=== PATIENT | female | born 1960 | race Caucasian/White ===

== ENCOUNTER 2016-07-18 10:18 | Emergency (ER) | payer BC ==
[2016-07-18 11:05] LABS: BASOPHILS 0.3 % (0.0-2.0); EOSINOPHILS 1.8 % (0-7); HEMATOCRIT 41.8 % (36.0-48.0); HEMOGLOBIN 13.8 g/dL (12-16); IMMATURE GRANULOCYTES 0.2 % (0-5); LYMPHOCYTES 33.3 % (15-50); MCH 30.6 pg (26.0-34.0); MCV 92.7 fL (80.0-100.0); MEAN PLATELET VOLUME 10.9 fL (7.4-10.4); MONOCYTES 11.2 % (2-11); NEUTROPHILS 53.2 % (40-80); PLATELET COUNT 194 10x3/uL (130-400); RBC 4.51 10x6/uL (4.00-5.40); RDW 13.4 % (11.5-14.5); WBC 6.1 10x3/uL (4.8-10.8)
[2016-07-18 11:14] LABS: ALKALINE PHOSPHATASE 67 U/L (46-116); ALT (SGPT) 32 U/L (10-68); CALC OSMOLALITY 268 mosm/kg (275-300); CALCIUM 9.4 mg/dL (8.5-10.1); CARBON DIOXIDE 26.5 mmol/L (21.0-32.0); CHLORIDE - SERUM 100 mmol/L (98-107); CREATININE - SERUM 0.9 mg/dL (0.6-1.3); GLUCOSE 102 mg/dL (74-106); POTASSIUM - SERUM 3.7 mmol/L (3.5-5.1); PROTEIN - SERUM 7.3 g/dL (6.4-8.2); SODIUM 134 mmol/L (136-145); UREA NITROGEN 16 mg/dL (7-18); eGFR NON AFRICAN AMERICAN 69 mL/min (90-120)
[2016-07-18 11:23] LABS: APPEARANCE CLEAR (CLEAR); BILIRUBIN NEGATIVE (NEGATIVE); COLOR STRAW (YELLOW); GLUCOSE NEGATIVE (NEGATIVE); KETONE NEGATIVE (NEGATIVE); LEUKOCYTE ESTERASE NEGATIVE (NEGATIVE); NITRITE NEGATIVE (NEGATIVE); PROTEIN NEGATIVE (NEGATIVE); UROBILINOGEN NORMAL (NORMAL)
[2016-07-18 11:25] LABS: CKMB 1.3 U/L (0.0-3.6); CREATINE KINASE 64 UL (21-215); TROPONIN-I 0.016 ng/mL (0.000-0.060)
[2016-07-18 11:39] LABS: T4 THYROXIN - FREE 1.03 ng/dL (0.76-1.46); T4 THYROXINE 7.6 ug/dL (4.7-13.3); THYROID STIMULATING HORMONE 1.63 uIU/mL (0.36-3.74)
== END 2016-07-18 13:53 | disposition home or self-care (01) ==
LOC: D.ER 10:18
PROVIDERS: Emergency Medicine; Physician Assistant Medical
DX: R07.89 Other chest pain (principal)

== ENCOUNTER 2020-08-10 05:58 | Inpatient (IN) | payer BC ==
[2020-08-10] VITALS (8 sets, daily range): BP systolic 121–172; BP diastolic 69–87; BMI 27.1; BMI 27.9
[~2020-08-10] VITALS: Ht 167.6 cm; Wt 78.5 kg
[~2020-08-10 05:58] MED LIST: MULTI-DAY VITAM1 TAB PO; PAXIL10 MG PO; PROBIOTIC1 EAC1 PO; VITAMIN D-32000 UNI2 PO
[2020-08-10 06:48] LABS: CALC OSMOLALITY 281 mosm/kg (275-300); CALCIUM 9.1 mg/dL (8.5-10.1); CHLORIDE - SERUM 106 mmol/L (98-107); CREATININE - SERUM 0.8 mg/dL (0.6-1.3); GLUCOSE 106 mg/dL (74-106); POTASSIUM - SERUM 3.9 mmol/L (3.5-5.1); SODIUM 141 mmol/L (136-145); UREA NITROGEN 15 mg/dL (7-18); eGFR NON AFRICAN AMERICAN 78 mL/min (90-120)
[2020-08-10 06:52] LABS: BASOPHILS 0.2 % (0-2); EOSINOPHILS 2.5 % (0-7); HEMATOCRIT 43.4 % (36.0-48.0); HEMOGLOBIN 13.9 g/dL (12-16); IMMATURE GRANULOCYTES 0.2 % (0-5); LYMPHOCYTE ABS# 1.48 10x3/uL (1.18-3.74); LYMPHOCYTES 28.4 % (15-50); MCH 30.7 pg (26.0-34.0); MCV 95.8 fL (80.0-100.0); MEAN PLATELET VOLUME 10.1 fL (7.4-10.4); MONOCYTES 9.6 % (2-11); NEUTROPHIL ABS# 3.09 10x3/uL (1.56-6.13); NEUTROPHILS 59.1 % (40-80); RBC 4.53 10x6/uL (4.00-5.40); RDW 13.5 % (11.5-14.5); WBC 5.2 10x3/uL (4.8-10.8)
[2020-08-10 06:56] LABS: PLATELET COUNT 268 10x3/uL (130-400)
[2020-08-10 06:59] LABS: SARS-CoV-2 ANTIGEN NEGATIVE- SARS-COV-2 (NEGATIVE)
[2020-08-10 07:03] LABS: APTT 26.6 SECONDS (22.8-39.4); INR 0.98 (0.85-1.17)
[2020-08-10 07:55] LABS: BACTERIA NONE SEEN HPF (NONE SEEN); BILIRUBIN NEGATIVE (NEGATIVE); KETONE NEGATIVE (NEGATIVE); NITRITE NEGATIVE (NEGATIVE); SQUAMOUS EPITHELIAL RARE HPF (0-4); UROBILINOGEN NORMAL mg/dL (< 2); WHITE CELLS - URINE RARE HPF (0-4)
--- NOTE | 2020-08-10 10:05 | NUR ---
CAUTERY PAD PLACED ON RIGHT THIGH. PLASMA BLADE USED ON SETTING 6/8. AQUAMANIS USED ON SETTING 170. CAUTERY PAD LOT#[id number] EXP. 12/17/2021
--- NOTE | 2020-08-10 12:28 | NUR ---
PT VERY SLEEPY BUT OORIENTED TO SELF AND PLACE AFTER ARRIVAL FROM PACU. LEFT GROIN DRESSING NOTED CLEAN DRY AND INTACT WITH ICE BAG NOTED. SCDS ON BILAT LEGS. FALL ALARM ON AND ACTIVATED. OXYGEN AT 2L PER NC. CALL LIGHT IN REACH
--- NOTE | 2020-08-10 12:51 | OP ---
PATIENT NAME: LEONELA VILLARREAL MEDICAL RECORD: [id number] :62 LOCATION:D.M3 D.1207 ADMISSION DATE:08/10/20 SURGEON: DUNG UGARTE DO DATE OF OPERATION: 08/10/2020 PROCEDURE PERFORMED: Left total hip arthroplasty. PREOPERATIVE DIAGNOSIS: Left hip osteoarthritis. POSTOPERATIVE DIAGNOSIS: Left hip osteoarthritis. INDICATIONS: Ms. Villarreal is a 59-year-old female who has had left hip pain for quite some time. She got to a point where it is affecting her activities of daily living. She wanted something done surgically. MRIs were done showing cartilage loss on the superior aspect of the femoral head as well as took cam impingement. I believe we did try intra-articular injection and it did not help much at all. She is tired dealing with the pain and wanted something done surgically, wanted a hip replacement. I talked extensively about this and she is aware of the risks including infection, bleeding, damage to nerves and vessels, need for further surgery, continued pain, loss of motion of the hip, fracture, failure of implants, blood clots and even and she signed the consent. SURGEON: Dung Ugarte DO DESCRIPTION OF PROCEDURE: The patient was taken to the operative suite, laid in supine position, given 2 grams of Ancef, 80 mg of gentamicin, and a gram of TXA. She was sedated and intubated. She was then moved over the Pl[place] table and positioned. The left hip was prepped and draped in sterile fashion. A timeout was performed. Everyone was in agreement with the correct side, site, patient, and procedure. I then began by making an incision over the tensor fascia sergio muscle, made careful dissection down to the muscle belly itself, took the fascia anteriorly, muscle belly posteriorly with an Adson-Esau. I then opened up the rectus interval, took the rectus medially and the tensor fascia sergio laterally, dissected out the ascending branch of lateral femoral circumflex, tied it off and coagulated and cut it. I then exposed the capsule opened up the capsule and tagged it, put Hohmann's around the neck, got an x-ray to ensure us cutting in the right place. I then cut the neck, removed the head. When I removed the head, I saw that the femoral head was essentially denuded of any cartilage whatsoever on the superior aspect of the weightbearing portion of it. I then removed the labrum and pulvinar and coagulated any bleeding with Aquamantys. I then reamed first medializing with a 42 and then reamed up to a 50. 50 cup was then impacted in and the liner was put in under fluro. I then exposed the femur. I then used a cookie cutter and canal finder to get into the femoral canal. I then broached from a 7 to an 8 and 8 fit very tightly and then reduced with a -6 head-neck combination. A -6 neck, which was equal length to the right on x-ray an AP pelvis. The lesser trochanter are even indicating equal lengths. We then dislocated the hip, removed the trials in the femur, irrigated thoroughly and then placed in an 8 stem and impacted on an 8 dual mobility head with -6 neck. I then reduced it. X-rays were taken. Again, no fractures were seen in the femur. The stem fit very well. There were also equal lengths on the AP pelvis to the right side. We then irrigated with 10% povidone iodine with 500 mL of normal saline solution and let it sit for couple of minutes and then irrigated out with over 1000 cc of normal saline. We then put an risks of vancomycin and tobramycin powder. Layton Alston, certified OPERATIVE REPORT [id number] LEONELA VILLARREAL surgical back office medical assistant then closed the tensor fascia sergio fascia with a #1 Vicryl in a ushfbl-zi-othmo running locking stitch and then the skin with 2-0 Vicryl in an inverted interrupted fashion, 4-0 Monocryl ran on the skin and Prineo glue placed on the skin. She was dressed with Telfa and Tegaderm. Awakened and taken to recovery in stable condition. BLOOD LOSS: Approximately 250 mL. COMPLICATIONS: None. TRANSINT:[id number] Voice Confirmation ID: [id number] DOCUMENT ID: [id number] DUNG UGARTE DO at 1255 CC: [id number] DICTATION DATE: 08/10/20 0957 SHIP CARPENTER: 08/10/20 1239 ADM IN [facility] [address] [place] [address]
--- NOTE | 2020-08-10 17:59 | NUR ---
PT HAD EMESIS OF APPROX 100CC. ZOFRAN GIVEN. CALL LIGHT IN REACH. FALL ALARM ON.
--- NOTE | 2020-08-10 18:59 | NUR ---
PATIENT RESTING IN BED WITH NO S/S OF DISTRESS. GUEST AT BEDSIDE. PATIENT DENIES NEEDS AT THIS TIME. BED IN LOWEST POSITION AND CALL LIGHT WITHIN REACH. ENCOURAGED PATIENT TO CALL WITH NEEDS.
--- NOTE | 2020-08-10 21:06 | NUR ---
ADMINISTERED MEDS PER ORDERS. PATIENT GEORGES. WELL ENCOURAGED TO CALL WITH NEEDS.
[2020-08-11 04:00] VITALS: BP 136/75
[2020-08-11 05:19] VITALS: BP 136/75
--- NOTE | 2020-08-11 07:27 | NUR ---
PT RESTING QUIETLY IN BED, DENIES PAIN AT THIS TIME, BUT DOES VOICE WISHES TO HAVE PAIN MEDICATION ADMINISTERED PRIOR TO PT. IV TO RIGHT FOREARM WITH 1/2 NS @ 50ML/HR INFUSING VIA PUMP. SITE WITHOUT REDNESS OR EDEMA. DRESSING C/D/I TO LEFT HIP. DENIES FURTHER NEEDS AT THIS TIME. CL WITHIN REACH. ENCOURAGED TO CALL WITH NEEDS. CONTINUE POC
[2020-08-11 08:52] LABS: BASOPHILS 0.1 % (0-2); EOSINOPHILS 0.2 % (0-7); HEMATOCRIT 37.2 % (36.0-48.0); HEMOGLOBIN 11.8 g/dL (12-16); IMMATURE GRANULOCYTES 0.2 % (0-5); LYMPHOCYTE ABS# 1.49 10x3/uL (1.18-3.74); LYMPHOCYTES 15.6 % (15-50); MCH 30.4 pg (26.0-34.0); MCHC 31.7 g/dL (31.0-37.0); MCV 95.9 fL (80.0-100.0); MEAN PLATELET VOLUME 10.3 fL (7.4-10.4); MONOCYTES 8.9 % (2-11); NEUTROPHIL ABS# 7.16 10x3/uL (1.56-6.13); PLATELET COUNT 245 10x3/uL (130-400); RBC 3.88 10x6/uL (4.00-5.40); RDW 13.3 % (11.5-14.5)
[2020-08-11 08:59] LABS: WBC 9.6 10x3/uL (4.8-10.8)
[2020-08-11 09:07] LABS: CALC OSMOLALITY 275 mosm/kg (275-300); CARBON DIOXIDE 28.8 mmol/L (21.0-32.0); CHLORIDE - SERUM 105 mmol/L (98-107); CREATININE - SERUM 0.8 mg/dL (0.6-1.3); GLUCOSE 83 mg/dL (74-106); POTASSIUM - SERUM 3.8 mmol/L (3.5-5.1); SODIUM 140 mmol/L (136-145); UREA NITROGEN 8 mg/dL (7-18); eGFR NON AFRICAN AMERICAN 78 mL/min (90-120)
[2020-08-11 09:21] VITALS: BP 128/75
[2020-08-11 11:18] VITALS: Ht 167.6 cm; Wt 78.5 kg
[2020-08-11 13:43] VITALS: BP 120/75
[2020-08-11] MEDS ORDERED: ELIQUIS2.5 MG PO (15:43)
[2020-08-11] MEDS ORDERED: PERCOCET 10-321 EAC1 PO (15:44)
--- NOTE | 2020-08-11 16:27 | MORECARE ---
CASE MANAGEMENT DISCHARGE SUMMARY PATIENT: LEONELA KC UNIT: [id number] ADM DATE: 08/10/20 AGE: 59 : 62 SEX: F ROOM/BED: D.1207 AUTHOR: DARRION MENSAH PHYSICIAN: REFERRING PHYSICIAN: MONA UGARTE DO DATE OF SERVICE: 08/11/20 Discharge Plan Patient Name: LEONELA KC Facility: [facility] : 1960 Planned Disposition: Home Anticipated Discharge Date: Discharge Date: Expected LOS: Initial Reviewer: [email or web address] Initial Review Date: 08/10/2020 Generated: 08/11/20 5:26 pm DCPIA - Discharge Planning Initial Assessment Updated by ABEL: Luanne Alvarez on 08/11/20 4:24 pm * Is the patient Alert and Oriented? Yes * How many steps to enter\exit or inside your home? * PCP RIZWAN * [facility] * Preadmission Environment Home with Family * ADLs Independent * Equipment Walker * Other Equipment [place], [place] * List name and contact numbers for known caregivers / representatives who currently or will assist patient after discharge: ANKUR KC - SPOUSE- [phone] * Verbal permission to speak to the caregivers and representatives has been obtained from the patient. Yes * Community resources currently utilized None * Additional services required to return to the preadmission environment? No * Can the patient safely return to the preadmission environment? Yes * Has this patient been hospitalized within the prior 30 days at any hospital? 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
--- NOTE | 2020-08-12 06:44 | MORECARE ---
CASE MANAGEMENT DISCHARGE SUMMARY PATIENT: LEONELA KC UNIT: [id number] ADM DATE: 08/10/20 AGE: 59 : 62 SEX: F ROOM/BED: D.1207 AUTHOR: DARRION MENSAH PHYSICIAN: REFERRING PHYSICIAN: MONA UGARTE DO DATE OF SERVICE: 08/12/20 Discharge Plan Patient Name: LEONELA KC Facility: [facility] : 1960 Planned Disposition: Home Anticipated Discharge Date: Discharge Date: 08/11/2020 Expected LOS: Initial Reviewer: [email or web address] Initial Review Date: 08/10/2020 Generated: 08/12/20 7:43 am DCPIA - Discharge Planning Initial Assessment Updated by [email or web address]: Luanne Alvarez on 08/11/20 4:24 pm * Is the patient Alert and Oriented? Yes * How many steps to enter\exit or inside your home? * PCP RIZWAN * [facility] * Preadmission Environment Home with Family * ADLs Independent * Equipment Walker * Other Equipment BSC, [place] * List name and contact numbers for known caregivers / representatives who currently or will assist patient after discharge: ANKUR KC - SPOUSE- [phone] * Verbal permission to speak to the caregivers and representatives has been obtained from the patient. Yes * Community resources currently utilized None * Additional services required to return to the preadmission environment? No * Can the patient safely return to the preadmission environment? Yes * Has this patient been hospitalized within the prior 30 days at any hospital? 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 Name: Delivery Method: HAND - Hand Delivered Anila Days: Prior Verbal Notification: Recipient Understood Notice: Yes Recipient Signature: Yes Med Rec Note Co-signed by Attending: Coverage Notice Comment: [facility] Last DP export: 08/11/20 3:27 p Patient Name: LEONELA KC Page [id number] at 0644 All edits/amendments must be made on the electronic document DICTATION DATE: 08/12/20642 CHORUS MASTER: AGUSTIN 08/12/20642 RPT#: [id number] DC DATE:08/11/20 STATUS: DIS [facility] [address] [facility] [place] [address] END OF REPORT
== END 2020-08-11 18:07 | disposition home or self-care (01) | DRG 470 ==
LOC: D.OPS 05:58 → EDSTATUS 07:00 → D.OPS 08:00 → D.M3 11:21
PROVIDERS: Family Medicine; ADMIT Orthopaedic Surgery; ATTEND Orthopaedic Surgery
PROC: 0SRB0JZ Replacement of Left Hip Joint with Synthetic Substitute, Open Approach (ICD-10-PCS; principal; 2020-08-10 08:00)
DX: M16.12 Unilateral primary osteoarthritis, left hip (principal); F32.9 Major depressive disorder, single episode, unspecified

== ENCOUNTER 2020-11-08 08:58 | Observation (INO) | payer BC ==
[~2020-11-08] VITALS: Ht 167.6 cm; Wt 83.2 kg
[~2020-11-08 08:58] MED LIST changes: +ELIQUIS2.5 MG PO; +PERCOCET 10-321 EAC1 PO
[2020-11-19] MEDS ORDERED: BAYER CHEWABLE81 MG PO (14:56)
[2020-11-19] MEDS ORDERED: CALTRATE+D3 PL1 EACH (14:56)
[2020-11-19 15:45] LABS: BASOPHILS 0.3 % (0-2); EOSINOPHILS 3.7 % (0-7); HEMATOCRIT 40.7 % (36.0-48.0); HEMOGLOBIN 13.5 g/dL (12-16); LYMPHOCYTES 9.6 % (15-50); MCH 29.9 pg (26.0-34.0); MCHC 33.2 g/dL (31.0-37.0); MCV 90.2 fL (80.0-100.0); MEAN PLATELET VOLUME 8.4 fL (7.4-10.4); MONOCYTES 7.5 % (2-11); NEUTROPHILS 78.9 % (40-80); PLATELET COUNT 236 10x3/uL (130-400); RBC 4.51 10x6/uL (4.00-5.40); RDW 14.1 % (11.5-14.5); WBC 9.7 10x3/uL (4.8-10.8)
[2020-11-19 15:56] LABS: APTT 26.5 SECONDS (22.8-39.4); PROTIME 12.2 SECONDS (11.6-15.0)
[2020-11-19 16:01] LABS: BILIRUBIN NEGATIVE (NEGATIVE); KETONE NEGATIVE (NEGATIVE); NITRITE NEGATIVE (NEGATIVE); UROBILINOGEN NORMAL mg/dL (< 2)
[2020-11-19 16:04] LABS: CALCIUM 9.5 mg/dL (8.5-10.1); CARBON DIOXIDE 28.9 mmol/L (21.0-32.0); CREATININE - SERUM 0.9 mg/dL (0.6-1.3); POTASSIUM - SERUM 3.9 mmol/L (3.5-5.1)
[2020-11-23] VITALS (13 sets, daily range): BP systolic 116–159; BP diastolic 63–88; Ht 167.6 cm; Wt 83.2 kg
--- NOTE | 2020-11-23 12:02 | NUR ---
PT GRIMACING. BP ELEVATED A LITTLE. HR ELEVATED FROM ENTRANCE TO ROOM. PT STATES SHE IS HURTING 8./10 PAIN.
[2020-11-24] VITALS: BP 104/62
[2020-11-24 04:01] VITALS: BP 117/68
--- NOTE | 2020-11-24 06:01 | OP ---
PATIENT NAME: LEONELA VILLARREAL MEDICAL RECORD: [id number] :62 LOCATION: D.0 ADMISSION DATE:11/23/20 SURGEON: DUNG UGARTE DO DATE OF OPERATION: 11/23/2020 PROCEDURE PERFORMED: Right total hip arthroplasty. PREOPERATIVE DIAGNOSIS: Right hip osteoarthritis. POSTOPERATIVE DIAGNOSIS: Right hip osteoarthritis. INDICATIONS: Ms. Villarreal is a 59-year-old female who had her left hip done a few months ago. The right hip was just as painful she wanted it done as well. X-rays were done and showed the same findings that were on the left. She had some cysts in the femoral head and it was quite painful with motion. She is aware of the risks of this including infection, bleeding, fracture, damage to nerves and vessels, need for further surgery, leg length discrepancy, continued pain, damage to structures in the area, blood clots and even and she signed the consent. SURGEON: Dung Ugarte DO. DESCRIPTION OF PROCEDURE: The patient was taken to the operative suite, laid in supine position, sedated and intubated. She was given 2 grams of Ancef, 80 mg of gentamicin, a gram of TXA. She was then moved to the Vaughn table and positioned. The right hip was prepped and draped in sterile fashion. Timeout was performed. Everyone was in agreement with correct side, site, patient and procedure. I then began by making an incision over the tensor fascia sergio muscle belly and made careful dissection down to it, incised the fascia with the Bovie and then took the fascia into the muscle belly posteriorly and opened up the rectus interval, rectus medially and tensor fascia sergio laterally. I encountered the ascending branch of lateral femoral circumflex, coagulated with Aquamantys, and then put Hohmann's around the neck and opened up the capsule. I then tagged the capsule and put Hohmann's intracapsularly. I then got an x-ray to make sure I was making an anterior neck cut in a good position and it was. I made a neck cut and removed the head. It was denuded of any cartilage on the weightbearing portion of the femoral head. I then put in the Charnley and removed the pulvinar and the labrum and started reaming, reamed up to a 48, 48 cup was then impacted into place and then liner was impacted and I reamed under fluoroscopy. I then exposed the femur and broached with a 7 and then 8 and a 9, 9 fit well, made sure to get plenty of lateral. We then trialed a -6 neck and it was equal length to left side and the stem was in good position. There were no fractures seen. I then removed the trials and put the actual implant and after irrigating and put the -6 dual mobility head and neck on and reduced it. Again, no shucking and good internal and external rotation with small ball movement only, not the big ball. I then irrigated with 10% povidine iodine and 500 mL normal saline solution after getting x-rays. There were no fractures in the femur and the cuff was in good position and equal length to the left side. Layton Alston, certified nursing surgical services director, then irrigated out with a liter of normal saline, put in Glenys, vancomycin, tobramycin powder and closed the tensor fascia sergio fascia with #1 Vicryl in a xmzfsg-oz-wapvk fashion and a running locking stitch. I then put a Kerecis on top of the fascia and closed the skin with 2-0 Vicryl in inverted interrupted fashion and 4-0 Monocryl on skin, then dressed it with Prineo glue and Telfa and Tegaderm. She was then taken to the recovery room in stable condition. OPERATIVE REPORT [id number] LEONELA VILLARREAL BLOOD LOSS: Approximately 200 mL. COMPLICATIONS: None. TRANSINT:[id number] Voice Confirmation ID: [id number] DOCUMENT ID: [id number] DUNG UGARTE DO at 0601 CC: [id number] DICTATION DATE: 11/23/20 1126 LIVESTOCK RANCHER: 11/23/20 2216 ADM IN [facility] [address] [place] [address]
[2020-11-24 06:22] LABS: BASOPHILS 0.3 % (0-2); EOSINOPHILS 0.2 % (0-7); HEMATOCRIT 33.9 % (36.0-48.0); HEMOGLOBIN 11.7 g/dL (12-16); MCH 31.1 pg (26.0-34.0); MCHC 34.5 g/dL (31.0-37.0); MCV 90.3 fL (80.0-100.0); MEAN PLATELET VOLUME 8.7 fL (7.4-10.4); MONOCYTES 8.4 % (2-11); NEUTROPHILS 79.1 % (40-80); PLATELET COUNT 227 10x3/uL (130-400); RBC 3.75 10x6/uL (4.00-5.40); RDW 13.7 % (11.5-14.5); WBC 9.9 10x3/uL (4.8-10.8)
--- NOTE | 2020-11-24 06:30 | NUR ---
I have reviewed this patient and I concur with the Shift Assessment completed by the Licensed Practical Nurse today this shift.
[2020-11-24 06:38] LABS: ALKALINE PHOSPHATASE 72 U/L (30-120); ALT (SGPT) 20 U/L (10-68); BILIRUBIN - TOTAL 0.27 mg/dL (0.2-1.3); CALC OSMOLALITY 281 mosm/kg (275-300); CALCIUM 8.5 mg/dL (8.5-10.1); CARBON DIOXIDE 27.5 mmol/L (21.0-32.0); CHLORIDE - SERUM 106 mmol/L (98-107); CREATININE - SERUM 0.8 mg/dL (0.6-1.3); GLUCOSE 106 mg/dL (74-106); PROTEIN - SERUM 6.3 g/dL (6.4-8.2); SODIUM 141 mmol/L (136-145); UREA NITROGEN 14 mg/dL (7-18); eGFR NON AFRICAN AMERICAN 78 mL/min (90-120)
--- NOTE | 2020-11-24 07:46 | NUR ---
AWAKE AND ALERT. ORIENTED X3. NO C/O AT THIS TIME. LUNGS ARE CLEAR BILATERALLY, NO COUGH NOTED. SKIN IS INTACT WTIHOUT REDNESS EXCEPT INCISION TO RIGHT GROIN WHICH HAS A DRY INTACT DRESSING IN PLACE. IV TO LEFT HAND IS PATENT WITHOUT REDNESS AT INSERTION SITE. DENIES NEEDS. SCD'S AND YASMINE'S IN PLACE.
[2020-11-24 08:57] VITALS: BP 134/69
--- NOTE | 2020-11-24 09:17 | NUR ---
ATE MOST OF BREAKFAST. TOOK AM MEDS WITHOUT DIFFICULTY. REQUESTED AND GIVEN ONE PERCOCET PO PRIOR TO THERAPY. WILL MONITOR.
[2020-11-24 12:22] VITALS: BP 127/64
--- NOTE | 2020-11-24 13:13 | NUR ---
ATE MOST OF LUNCH. REQUESTED AND GIVEN ONE PERCOCET PO FOR C/O RIGHT HIP PAIN LEVEL 2 PRIOR TO THERAPY. WILL MONITOR.
[2020-11-24] MEDS ORDERED: VISTARIL50 MG PO (14:10)
[2020-11-24] MEDS ORDERED: ELIQUIS2.5 MG PO (14:10)
[2020-11-24] MEDS ORDERED: HYDROCODON-ACE1 EA10 PO (14:10)
--- NOTE | 2020-11-24 16:48 | MORECARE ---
CASE MANAGEMENT DISCHARGE SUMMARY PATIENT: LEONELA KC UNIT: [id number] ADM DATE: 11/23/20 AGE: 59 : 62 SEX: F ROOM/BED: [facility] AUTHOR: RODRICK,DOC PHYSICIAN: REFERRING PHYSICIAN: MONA UGARTE DO DATE OF SERVICE: 11/24/20 Case Management Discharge Planning Summary DCP REVIEW SUMMARY ANTICIPATED D/C DATE: EXPECTED LOS : CASE STATUS: DCP Initiated INITIAL REVIEW: 11/23/2020 INITIAL REVIEWER: Emily Rosa FINAL DISCHARGE DISPOSITION: : FINAL REVIEWER: FINAL REVIEW DATE: DCP Focus Questions & Answers QUESTION: ANSWER : PATIENT: LEONELA KC ENCOUNTER: [id number] MEDICAL RECORD#: [id number] ADMISSION DATE: 11/23/2020 DISCHARGE DATE: ATTENDING MD: MONA AMAYA : AGE: 59 MARITAL STATUS: M DC PLAN ID: [id number] FACILITY: [facility] PRINTED ON: 11/24/20 16:48 CT All edits/amendments must be made on the electronic document DICTATION DATE: 11/24/201647 PAYROLL OFFICER: DM 11/24/201647 RPT#: [id number] DC DATE: STATUS: ADM IN [facility] [address] [place] [address] END OF REPORT
--- NOTE | 2020-11-24 17:01 | MORECARE ---
CASE MANAGEMENT DISCHARGE SUMMARY PATIENT: LEONELA KC UNIT: [id number] ADM DATE: 11/23/20 AGE: 59 : 62 SEX: F ROOM/BED: D.2230 AUTHOR: RODRICK,DOC PHYSICIAN: REFERRING PHYSICIAN: MONA UGARTE DO DATE OF SERVICE: 11/24/20 Case Management Discharge Planning Summary COMMENTS ENTERED DATE: 11/24/20 16:47 CT COMMENT TYPE: Discharge Planning REVIEWER: Emily Rosa CM met with patient at bedside after obtaining verbal consent. CM discussed availability / needs of home health, REHAB and medical equipment. Patient states has all equipment at home. Family at bedside. Appointment for outpatient physical therapy with [facility] scheduled for 10 am in the morning. Copy of order given to patient and faxed to [facility]. DCP REVIEW SUMMARY ANTICIPATED D/C DATE: EXPECTED LOS : CASE STATUS: DCP Initiated INITIAL REVIEW: 11/23/2020 INITIAL REVIEWER: Emily Rosa FINAL DISCHARGE DISPOSITION: : FINAL REVIEWER: FINAL REVIEW DATE: DCP Focus Questions & Answers QUESTION: ANSWER : PATIENT: LEONELA KC ENCOUNTER: [id number] MEDICAL RECORD#: [id number] ADMISSION DATE: 11/23/2020 DISCHARGE DATE: ATTENDING MD: MONA AMAYA : AGE: 59 MARITAL STATUS: M DC PLAN ID: [id number] FACILITY: [facility] PRINTED ON: 11/24/20 17:01 CT All edits/amendments must be made on the electronic document DICTATION DATE: 11/24/201700 CARDIOLOGY CLINICAL CONSULTANT: AGUSTIN 11/24/201700 RPT#: [id number] DC DATE: STATUS: ADM IN [facility] [address] [place] [address] END OF REPORT
[2020-11-24 17:08] VITALS: BP 126/67
--- NOTE | 2020-11-24 17:51 | NUR ---
DISCHARGED TO HOME WITH AMBULATORY. DISCHARGE INSTRUCTIONS GIVEN BOTH VERBALLY AND WRITTEN. ALL QUESTIONS ANSWERED. PATIENT AND VERBALIZED UNDERSTANDING OF SAME. IV TO RIGHT HAND D/C WITH CATHETER INTACT. NEEDED PRESCRIPTIONS GIVEN TO PATIENT. ALL BELONGINGS WITH PATIENT.
--- NOTE | 2020-11-24 17:55 | MORECARE ---
CASE MANAGEMENT DISCHARGE SUMMARY PATIENT: LEONELA KC UNIT: [id number] ADM DATE: 11/23/20 AGE: 59 : 62 SEX: F ROOM/BED: D.2230 AUTHOR: RODRICK,DOC PHYSICIAN: REFERRING PHYSICIAN: MONA UGARTE DO DATE OF SERVICE: 11/24/20 Case Management Discharge Planning Summary COMMENTS ENTERED DATE: 11/24/20 16:47 CT COMMENT TYPE: Discharge Planning REVIEWER: Emily Rosa CM met with patient at bedside after obtaining verbal consent. CM discussed availability / needs of home health, REHAB and medical equipment. Patient states has all equipment at home. Family at bedside. Appointment for outpatient physical therapy with [facility] scheduled for 10 am in the morning. Copy of order given to patient and faxed to [facility]. DCP REVIEW SUMMARY ANTICIPATED D/C DATE: EXPECTED LOS : CASE STATUS: DCP Initiated INITIAL REVIEW: 11/23/2020 INITIAL REVIEWER: Emily Rosa FINAL DISCHARGE DISPOSITION: : FINAL REVIEWER: FINAL REVIEW DATE: DCP Focus Questions & Answers QUESTION: ANSWER : PATIENT: LEONELA KC ENCOUNTER: [id number] MEDICAL RECORD#: [id number] ADMISSION DATE: 11/23/2020 DISCHARGE DATE: 11/24/2020 ATTENDING MD: MONA AMAYA : AGE: 59 MARITAL STATUS: M DC PLAN ID: [id number] FACILITY: [facility] PRINTED ON: 11/24/20 17:55 CT All edits/amendments must be made on the electronic document DICTATION DATE: 11/24/201754 EXTENSION SUPERVISOR: AGUSTIN 11/24/201754 RPT#: [id number] DC DATE:11/24/20 STATUS: DIS IN [facility] [address] [place] [address] END OF REPORT
--- NOTE | 2020-11-25 10:52 | MORECARE ---
CASE MANAGEMENT DISCHARGE SUMMARY PATIENT: LEONELA KC UNIT: [id number] ADM DATE: 11/23/20 AGE: 59 : 62 SEX: F ROOM/BED: D.2230 AUTHOR: RODRICK,DOC PHYSICIAN: REFERRING PHYSICIAN: MONA UGARTE DO DATE OF SERVICE: 11/25/20 Case Management Discharge Planning Summary COMMENTS ENTERED DATE: 11/24/20 16:47 CT COMMENT TYPE: Discharge Planning REVIEWER: Emily Rosa CM met with patient at bedside after obtaining verbal consent. CM discussed availability / needs of home health, REHAB and medical equipment. Patient states has all equipment at home. Family at bedside. Appointment for outpatient physical therapy with [facility] scheduled for 10 am in the morning. Copy of order given to patient and faxed to [facility]. DCP REVIEW SUMMARY ANTICIPATED D/C DATE: EXPECTED LOS : CASE STATUS: DCP Initiated INITIAL REVIEW: 11/23/2020 INITIAL REVIEWER: Emily Rosa FINAL DISCHARGE DISPOSITION: : FINAL REVIEWER: FINAL REVIEW DATE: DCP Focus Questions & Answers QUESTION: ANSWER : PATIENT: LEONELA KC ENCOUNTER: [id number] MEDICAL RECORD#: [id number] ADMISSION DATE: 11/23/2020 DISCHARGE DATE: 11/24/2020 ATTENDING MD: MONA AMAYA : AGE: 59 MARITAL STATUS: M DC PLAN ID: [id number] FACILITY: [facility] PRINTED ON: 11/25/20 10:52 CT All edits/amendments must be made on the electronic document DICTATION DATE: 11/25/20 105 FLOAT NURSE: AGUSTIN 11/25/20 105 RPT#: [id number] DC DATE:11/24/20 STATUS: DIS IN [facility] [address] [place] [address] END OF REPORT
== END 2020-11-24 17:54 | disposition home or self-care (01) ==
LOC: D.SDCHOLD 11-23 07:00 → D.MS 11-23 07:00 → OBSVTIME 11-23 07:45 → D.SDCHOLD 11-23 09:15 → D.MS 11-23 12:03
PROVIDERS: Emergency Medicine; ADMIT Orthopaedic Surgery; ATTEND Orthopaedic Surgery
DX: M16.11 Unilateral primary osteoarthritis, right hip (principal); F32.9 Major depressive disorder, single episode, unspecified